=== PATIENT | female | born 1960 | race Caucasian/White ===

== ENCOUNTER 2022-07-22 14:19 | Outpatient (CLI) | payer OTHER, SELFPAY ==
[2022-07-22 15:00] LABS: Basophils # 0.1 10^3/uL (0.0-0.1); Basophils % 0.6 %; Eosinophils # 0.3 10^3/uL (0.0-0.8); Eosinophils % 4.3 %; Hematocrit 42.3 % (37.0-47.0); Hemoglobin 14.8 g/dL (11.5-15.3); Lymphocytes # 2.7 10^3/uL (0.8-4.8); Lymphocytes % 33.6 %; Mean Corpuscular Hemoglobin 31.8 pg (28.0-34.0); Mean Corpuscular Volume 90.8 fl (81-99); Mean Platelet Volume 10.9 fL (7.4-10.4); Monocytes # 0.7 10^3/uL (0.2-0.9); Monocytes % 8.8 %; Neutrophils # 4.12 10^3/uL (1.8-7.7); Neutrophils % 52.3 %; Nucleated Red Blood Cells % 0 %; Platelet Count 196 10^3/cmm (130-400); Red Blood Count 4.66 10^6/uL (4.1-5.3); Red Cell Distribution Width 11.9 % (12.1-15.1); White Blood Count 7.9 10^3/uL (4.0-10.0)
[2022-07-22 15:24] LABS: Anion Gap 14.8 (5-19); Blood Urea Nitrogen 10 mg/dL (8-23); Calcium 9.1 mg/dL (8.5-10.5); Carbon Dioxide 25 mmol/L (22-29); Chloride 102 mmol/L (98-107); Glomerular Filtration Rate 72.9 mL/min (90-130); Glucose 94 mg/dL (65-115); Osmolality Calculated 285 mOsm/kg (285-295); Potassium 3.8 mmol/L (3.5-5.1); Sodium 138 mmol/L (136-145)
[2022-07-22 15:40] LABS: INR 0.97 (0.83-1.21); Prothrombin Time (Patient) 13.2 Seconds (12.0-15.1)
== END 2022-07-22 14:20 | disposition home or self-care (01) ==
LOC: LAB 14:24
PROVIDERS: PCP Family Medicine; Visit Provider Internal Medicine Cardiovascular Disease
DX: I21.4 Non-ST elevation (NSTEMI) myocardial infarction (principal); Z79.899 Other long term (current) drug therapy
CPT/HCPCS: 80048; 85025; 85610; 86850; 86900

== ENCOUNTER 2022-07-23 05:32 | Outpatient (CLI) | payer OTHER, SELFPAY ==
[2022-07-23] VITALS (26 sets, daily range): BP systolic 114–193; BP diastolic 61–97; PULSE 49–70; RESP 9–18; TEMP 36.9–37; O2SAT 91–99; BMI 27.1
--- NOTE | 2022-07-23 06:00 | XACV_ITS ---
Ht: 165 cm Wt: 74 kg BSA: 1.86 m2 Gender: Female : 1960 Any Known Allergies: Other Exam Priority: Routine Procedure(s): Procedure Description: Diagnostic procedure Karl NICOLAS; Diagnostic Cath Status: Elective Diagnostic Findings * The left main is a medium caliber vessel which has a distal tapering narrowing of around 50%. * The left aneurysm the artery is a medium caliber vessel which appears to wrap around the LV apex minimally. Mild to moderate diffuse disease was noted in this vessel. The proximal to mid LAD was found to have a long stented segment which was found to have 20 to 30% diffuse in-stent narrowing. The first and second septal splunk consultant branches were found to have moderate to severe ostial narrowing. The first diagonal branch is a small caliber vessel which was found to have moderate to severe diffuse disease. Competitive flow was noted in the SHELTON graft attached to the distal artery. Just beyond the anastomosis, there was a 50 to 60% narrowing in the LAD proper. Around the apex, the artery was found to be of small caliber.. * The circumflex artery is a medium caliber vessel which was found to have moderate disease at the ostium. The first obtuse marginal artery was found to have venous graft with a Relative blood flow. The artery distal to the anastomosis was found to have mild diffuse disease. After the first obtuse marginal branch, the circumflex proper appears to be totally occluded. Expk-iy-[id number] collaterals were noted filling of the PDA and the PLV branches from the distal LAD and the first obtuse marginal branch. Grade 2 retrograde filling also was noted in the second obtuse marginal branch. * The right coronary artery was found to have long stented segment in the proximal portion. High-grade elongated in-stent stenosis was noted in this area. After the first RV branch, the artery appears to be totally occluded. * The venous graft to the obtuse marginal artery was selectively engaged. This venous graft was found to be widely patent. The retrograde flow into the circumflex and left anterior descending artery was noted, through this bypass graft.. * The venous graft to the right coronary artery, diagonal and the other obtuse marginal branch were found to be totally occluded. * The SHELTON to the LAD was found to be widely patent. Just before the distal anastomosis, the SHELTON was found to have around 50 to 60% narrowing. * An aortic root injection was performed to look for any patent grafts. The aorta was of normal caliber. No other grafts were visualized with the aortic root injection. Conclusions 1. 62-year-old white female with multiple risk factors for coronary artery disease, status post 5 vessel coronary bypass surgery, presenting with frequent arrhythmia. Patient refused to undergo a stress test because of the previous experience withthe stress test. So a cardiac catheterization was recommended to further evaluate the coronary status as well as the graft status.. 2. Patient underwent left heart catheterization with left and right coronary angiogram, graft angiogram and aortogram today. The findings are as follows. 3. 1. Tapering, 50% narrowing of the distal left main. 2. Moderate diffuse in-stent narrowing in the proximal to mid LAD. Moderate disease in the distal LAD just distal to the anastomosis of the SHELTON. 3. Total occlusion of the circumflex artery after giving of the first obtuse marginal branch. 3. Total occlusion of the right coronary artery after the first RV branch. High-grade in-stent stenosis in the proximal stented segment of the right coronary artery. Grade 2-3 iexp-up-aayjl collaterals, filling of the PLV and PDA branch of the right coronary artery4. Patent venous graft to the first obtuse marginal branch of the circumflex artery and SHELTON to the distal LAD. Occluded venous graft to the diagonal, second obtuse marginal and right coronary arteries.5. LVEDP of 16 mmHg.. Recommendations * Based on the above angiogram findings, it was thought to be appropriate to perform a Myocardial perfusion imaging to understand the ischemic burden and then consider revascularization. Diagnostic RX Recommendation: other cardiac therapy w/o CABG/PCI LV EDP: 16 mmHg Left Ventriculography Findings: * LV gram was not performed because of the concern of dye over load. The LVEDP of 16 mmHg. Pressures Phase:Rest AO : 145 / 72 ( 100 ) @ 7:18:00 AM 144 / 59 ( 94 ) @ 7:42:00 AM LV : 147 / -8 / 16 @ 7:41:00 AM 140 / -9 / 11 @ 7:42:00 AM Valves Phase:DefaultPhase AV : 0.0 @ 8:32:11 AM 0.0 @ 8:32:11 AM AV Mean Gradient: 0.0 @ 8:32:11 AM 0.0 @ 8:32:11 AM Clinical Evaluation EBL: 5mL-10mL Procedural Details Procedure Consent Obtained. Pre-Procedure Time Out. Identified patient by full name and date of as verbalized by the patient/guarantor. Does the consent match the physician's order: Yes. Accurate & Complete Informed Consent: Yes. Inpatient/Outpatient History & Physical on Chart: Yes. If H&P is completed, is and addenduem needed: No; If yes, is the addendum complete: N/A. Visualize and Verify Site with Patient/Guarantor: N/A. Relevant Radiology Images available: N/A. Pre-op teaching completed and patient verbalized understanding. The risks, benefits, and alternatives of sedation and/or procedure were discussed by physician. The patient agrees to continue. Procedure started. [facility] Clinical Fraility Score: 4: Vulnerable. 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 Chest Pain Symptom Assessment: Typical Angina Symptoms. Cardiovascular Instability: No. Correct patient, site and procedure confirmed by cath team. PERRLA. Strong, equal hand wood technologist bilaterally. Lungs clear x 5 lobes. IV Site on Arrival: 18 gauge in the right anticubital. IV Fluids: 0.9% NaCl at KVO. 0 mL infused prior to botany laboratory assistant. Pre Procedural Pulses: bilateral dorsalis pedis was 3+. Pre Procedural Pulses: bilateral posterior tibial was 3+. Pre Procedural Pulses: bilateral radial was 3+. Oxygen started at 2liters/min via nasal canula. bilateral groins was prepped with chloroprep then draped in the usual sterile fashion. Physician arrived. Equipment: 6F - Femoral. Cardiac Cath Pack. ACIST Manifold Kit Model BT 2000. Heparinized Saline (2 units/mL), 1000 mL bag. Kit, Micropuncture. Baseline sample Acquired. HR: 63 BPM. Physician scrubbed in. Immediate Pre-Procedure Time Out. Correct Patient: Yes; Correct Procedure: Yes; Correct Site: Yes; Correct Patient Position: Yes; Correct Supplies: Yes; Dried Flammable Prep: Yes; Blood Products Available: N/A;. Lidocaine 1% infiltrated to the right groin. Arterial access obtained with micropuncture set. A 5 slovenian JL4 catheter in over wire. Multiple views taken of left coronary artery. Catheter removed over the standard wire. A 5 slovenian JR4 catheter in over wire. Multiple views taken of right coronary artery. Catheter redirected to the grafts. SVG to RCA occluded. Catheter removed over the exchange wire. A 5 slovenian IM catheter in over wire. SHELTON to LAD visualized. Catheter removed over the exchange wire. A 5 slovenian LCB catheter in over wire. Catheter removed over the standard wire. A 5 slovenian Angled Pig catheter in over wire. EDP Sample taken: LV 147/-9,16; HR: 44 BPM; SpO2: 97%. Pullback taken: LV 140/-10,11; AO 144/59(94); Mean: 0mmHg, Peak to Peak: 0mmHg, SEP: 7sec/min; HR: 59 BPM; SpO2: 96%. Aortic Root Visualized. Aortic Root image 20 ml for total of 40 ml. Catheter removed over the standard wire. A 5 slovenian AR1 MOD catheter in over wire. Catheter removed over the standard wire. A 5 slovenian IM catheter in over wire. SVG's to OM/Circ visualized and patent. Catheter removed over the standard wire. A 5 slovenian JR4 catheter in over wire. Catheter removed over the standard wire. Physician scrubbed out. A Manual Compression was successful obtaining hemostatsis at the Right Femoral artery insertion site. Sheath(s) removed and manual pressure held until hemostasis was achieved. Sterile 4x4 and Op-site applied to the puncture site. No oozing or hematoma noted. Post sheath removal instructions were given and the patient verbalized understanding. Post Procedure: Pulses reassessed and unchanged. PERRLA. Strong, equal hand wood technologist bilaterally. No VTE prophylaxis required. Medication's Wasted: Lidocaine 1% = 4 mL. Medication's Wasted: Heparin = 2500 units. Total IV fluids: 70 mL. Contrast type used: Omnipaque 300 mgI/mL, 500 mL bottle. Complications: none. Post-op diagnosis: CAD. Estimated blood loss: 5mL-10mL. Responsiveness - Normal response to verbal stimuli; alert and oriented, PERRLA. Airway - Unaffected, no intervention required; spontaneous ventilation. Circulation: W/N/L, pulses unchanged. Nausea/Vomiting: No. Procedure completed. Patient transferred by stretcher to CPRU. Vital chart was stopped. Access Site Site: Right Femoral artery Sheath Size: 5 Fr Hemostasis Method: Manual Compression Hemostasis Success: Successful Procedure Medications Start: 7:10 AM Stop: 7:10 AM Medication: Versed Amount: 1 mg Route: I.V. Start: 7:10 AM Stop: 7:10 AM Medication: Fentanyl Amount: 50 mcg Route: I.V. Start: 7:14 AM Stop: 7:14 AM Medication: Versed Amount: 1 mg Route: I.V. Start: 7:14 AM Stop: 7:14 AM Medication: Fentanyl Amount: 50 mcg Route: I.V. Start: 7:17 AM Stop: 7:17 AM Medication: Heparin Amount: 1500 units Route: I.V. Start: 8:14 AM Stop: 8:14 AM Medication: Fentanyl Amount: 50 mcg Route: I.V. Start: 8:18 AM Stop: 8:18 AM Medication: Fentanyl Amount: 50 mcg Route: I.V. I, the attending physician, have reviewed and verified all procedure medications. Yes, all medications given per verbal order History/Risk Factors Hypertension: Yes Dyslipidemia: Yes Peripheral Arterial Disease (PAD): No Myocardial Infarction (FL): No Obesity: No Renal Disease: No Tobacco Use: Current/Recent(w/in 1 year) Prior Interventions PCI: Yes CABG: Yes Valve Surgery: No Report Signatures Finalized by Dr Selam Barajas MD [facility] on 07/24/2022 11:23 AM
[2022-07-23] MEDS: diphenhydrAMINE 50 mg Capsule PO (06:33)
--- NOTE | 2022-07-23 07:03 | W.PM.OPSUD ---
Surgery/Procedure H&P Update DATE OF PROCEDURE: July 23, 2022 DATE H&P PERFORMED: 07/08/22 H&P UPDATE INFORMATION: I have reviewed H&P completed within last 30 days, I have examined patient prior to procedure and No changes to prior documentation PREOP DIAGNOSIS: ASHD PRIMARY INDICATION FOR PROCEDURE: Patient is a 61-year-old coronary artery disease, status post coronary artery bypass surgery, presenting with a frequent ventricular arrhythmia. Patient refused stress test PLANNED PROCEDURE: Operation Date: 07/23/22 07:00 Proposed Procedures p [facility] 92931,I21.4, R94.31, I49.9(Left) - Selam Barajas MD PATIENT REASSESSED PRIOR TO SEDATION, WITH NO CHANGE NOTED: Yes PHYSICAL EXAM: alert, oriented x 3, clear to auscultation bilaterally and regular rate & rhythm AIRWAY EVAL/ANESTHESIA PLAN: normal airway, see other exam findings, ASA III, Monitored Anesthesia, Local Anesthesia, Risks, benefits & alternatives of sedation and/or procedure discussed and Patient agrees to continue as planned
--- NOTE | 2022-07-23 08:39 | SUR.PHASEI ---
POST CATH NOTE Received patient from freezer laboratory technician- status post cardiac catheterization via the right femoral approach. Sheath removed in freezer laboratory technician prior to arrival on unit. Groin access site is free of hematoma or s/s o active bleeding at this time. Pain- 0; assessed per flacc scale as patient is sedated at this time from procedure. See v/s and post cath flowsheet for details of assessment. Call light in reach if needed. Will continue to monitor.
--- NOTE | 2022-07-23 09:06 | SUR.PHASEI ---
POST OP IV FLUIDS Post cath iv fluid rate adjusted to 125 ml/hr per verbal orders from Dr Barajas. IVF IS 0.9% normal saline.
[2022-07-23] MEDS: isosorbide mononitrate ER 60 mg Tablet 120 MG PO (09:36)
[2022-07-23] MEDS: sertraline 100 mg Tablet PO (09:36)
[2022-07-23] MEDS: prenatal vitamin Capsule 1 CAP PO (09:36)
[2022-07-23] MEDS: alum-mag-hydroxide-sime 30 mL UDC PO (11:12)
[2022-07-23] MEDS: amlodipine 10 mg Tablet PO (11:12)
--- NOTE | 2022-07-23 11:13 | SUR.PHASEI ---
UPSET STOMACH 30 ML MAALOX GIVEN PO. WILL REASSESS.
--- NOTE | 2022-07-23 11:50 | SUR.PHASEI ---
upset stomach/BP NOTE Blood pressure 169/85 currently post amlodipine dosing. Upset stomach resolved after maalox admin. Will coninue to monitor.
[2022-07-23] MEDS: ezetimibe 10 mg Tablet PO (17:09)
[2022-07-23] MEDS: atorvastatin 40 mg Tablet 20 MG PO (21:02)
[2022-07-23] MEDS: sodium chloride 0.9% 1,000 ML 125 ML IV (21:04)
[2022-07-24] VITALS: BP 134/65; PULSE 64; RESP 21; TEMP 37.1; O2SAT 95
--- NOTE | 2022-07-24 | ECG_ITS ---
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 Interpretive Statements NAME OF STUDY: LEXISCAN SESTAMIBI STRESS TEST INDICATION: POST ANGIOGRAM/HX OF CABG PROCEDURE: At the baseline, the EKG revealed normal sinus rhythm with a frequent ventricular ectopics. The baseline heart was 81 bpm with a blood pressue of 128/77 mm of Hg Lexiscan was infused over a period of 20 seconds. A total of 0.4 milligrams of Lexiscan was infused. The stress phase was continued for a total of 5 minutes. Heart rate at the end of the stress phase was 104 bpm with a blood pressure 169/58 mm of Hg. The EKG at the peak infusion revealed no significant changes. Sestamibi was injected 20 seconds after the Lexiscan infusion. Heart rate at the end of the recovery phase was 89 bpm with a blood pressure of 142/94 mm of Hg. CONCLUSION: 1. No significant EKG changes with the LexiScan infusion 2. No LexiScan induced chest pain or cardiac arrhythmia 3. Normal blood pressure and heart rate response 4. Sestamibi/sestamibi perfusion scan pending; see separate report. Electronically Signed On 07-27-2022 0:10:04 CDT by Selam Barajas M.D. [email or web address]
--- NOTE | 2022-07-24 | NMCV_ITS ---
[address] [address] Nuclear Medicine Report Cancelled Patient: Macey Richter Unit #: [id number] : 1960 Age/Sex: 62 / F ADM Date: 07/23/22 Loc: [facility] Room/Bed: Attending Dr: Selam Barajas MD Ordering Provider/Ordering MD: Date of Service: Procedure(s): Accession Number(s): Report Number: [id number] NM danial perf SPECT r/s* [id number] Macey Richter Age: 62 Gender: F : 1960 Exam Date: 07/24/2022 10:00 Ordering Phys: Selam Barajas MD ([email or web address]) Technologist: SUZANNE Kearns Exam Location: [facility] Indications: CHEST PAIN STRESS TEST Please see separate stress test report in [facility] for full findings IMAGE PROTOCOL Rest/Stress 1 Lexiscan Day Radiopharmaceutical Dose (mCi) Administration Site Administered by Rest: Tc-99m 10.9 IV Toy Ortega, REALTY LOAN SPECIALIST Sestamibi Stress:Tc-99m 32.6 IV SUZANNE Kearns Sestamibi Rest: 24-Jul-2022 60 Discovery 630 Stress: 24-Jul-2022 30 Discovery 630 0.4mg Lexiscan. Images obtained in supine and prone position. SPECT RESULTS Technical Quality: Excellent Raw Data Analysis: Normal Image Corrections: No attenuation or motion correction applied Summed Stress Score: 6 Summed Rest Score: 7 Summed Difference Score: 2 PERFUSION FINDINGS Moderate area of minimal to moderately decreased tracer uptake was noted in the basal and mid inferior and inferolateral regions. Significant reversibility was noted in the inferior region at rest FUNCTIONAL RESULTS (calculated via Gated SPECT) Stress Image LV EF (%): 66 Stress EDV (mL):86 TID: 1.37 Stress ESV (mL):29 FUNCTIONAL FINDINGS: Segmental wall motion analysis revealing no gross wall motion abnormalities IMPRESSIONS 1. Myocardial perfusion imaging revealing moderate area of decreased tracer uptake in the inferior and inferolateral region with significant reversibility in the inferior region suggesting myocardial scarring with ischemia in the distribution of the left circumflex/right coronary artery. 2. Normal LV ejection fraction of 66%. 3. LV wall motion analysis revealing no gross wall motion abnormalities. 4. Normal LV volume No similar previous studies are available for comparison Dr Selam Barajas MD [facility] (Electronically Signed) Final Date: 24 July 2022 18:19 S MTDD
[2022-07-24] MEDS: sodium chloride 0.9% 1,000 ML 125 ML IV (03:48)
[2022-07-24 04:02] VITALS: BP 127/84; PULSE 66; RESP 22; TEMP 36.7; O2SAT 95
[2022-07-24 05:19] VITALS: PULSE 58
[2022-07-24] MEDS: zinc gluconate 50 mg Tablet PO (08:59)
[2022-07-24] MEDS: prenatal vitamin Capsule 1 CAP PO (08:59)
[2022-07-24] MEDS: pantoprazole DR 40 mg Tablet PO (08:59)
[2022-07-24] MEDS: aspirin 81 mg EC Tablet PO (08:59)
[2022-07-24] MEDS: sertraline 100 mg Tablet PO (08:59)
[2022-07-24] MEDS: isosorbide mononitrate ER 60 mg Tablet 120 MG PO (09:00)
--- NOTE | 2022-07-24 10:00 | NMCV_ITS ---
NM danial perf SPECT r/s* [id number] Macey Richter Age: 62 Gender: F : 1960 Exam Date: 07/24/2022 10:00 Ordering Phys: Selam Barajas MD ([email or web address]) Technologist: SUZANNE Kearns Exam Location: [facility] Indications: CHEST PAIN STRESS TEST [facility] IMAGE PROTOCOL Rest/Stress 1 Lexiscan Day Radiopharmaceutical Dose (mCi) Administration Site Administered by Rest: Tc-99m 10.9 IV SUZANNE Mon Sestamibi Stress:Tc-99m 32.6 IV SUZANNE Kearns Sestamibi Rest: 24-Jul-2022 60 Discovery 630 Stress: 24-Jul-2022 30 Discovery 630 0.4mg Lexiscan. Images obtained in supine and prone position. SPECT RESULTS Technical Quality: Excellent Raw Data Analysis: Normal Image Corrections: No attenuation or motion correction applied Summed Stress Score: 6 Summed Rest Score: 7 Summed Difference Score: 2 PERFUSION FINDINGS Moderate area of minimal to moderately decreased tracer uptake was noted in the basal and mid inferior and inferolateral regions. Significant reversibility was noted in the inferior region at rest FUNCTIONAL RESULTS (calculated via Gated SPECT) Stress Image LV EF (%): 66 Stress EDV (mL):86 TID: 1.37 Stress ESV (mL):29 FUNCTIONAL FINDINGS: Segmental wall motion analysis revealing no gross wall motion abnormalities IMPRESSIONS 1. Myocardial perfusion imaging revealing moderate area of decreased tracer uptake in the inferior and inferolateral region with significant reversibility in the inferior region suggesting myocardial scarring with ischemia in the distribution of the left circumflex/right coronary artery. 2. Normal LV ejection fraction of 66%. 3. LV wall motion analysis revealing no gross wall motion abnormalities. 4. Normal LV volume No similar previous studies are available for comparison Dr Selam Barajas MD [facility] (Electronically Signed) Final Date: 24 July 2022 18:19 S
[2022-07-24 10:08] VITALS: BP 177/72; PULSE 71; RESP 16; TEMP 37.1; O2SAT 95
[2022-07-24] MEDS: aminophylline 25 mg/mL SDV 10 mL IVP (10:49)
[2022-07-24] MEDS: ondansetron 2 mg/ML SDV 2 mL 4 MG IVP (11:01)
[2022-07-24] MEDS: regadenoson 0.4 Mg/5 ml Syringe IVP (11:01)
[2022-07-24 11:02] VITALS: BP 147/92; PULSE 87
--- NOTE | 2022-07-24 14:21 | P.PN_ITS ---
Subjective Subjective: Patient underwent a cardiac catheterization yesterday. She was found to have total occlusion of the circumflex artery after the first obtuse marginal branch. The right coronary artery was found to be totally occluded after the RV branch. The venous graft to the RCA was completely occluded. The venous graft to the obtuse marginal 1 was patent. The venous graft to the second obtuse marginal artery and to the diagonal artery were completely occluded. The SHELTON to the LAD was found to be patent. Based on the angiogram findings, it was thought to be appropriate to do a Myocardial perfusion imaging to evaluate the ischemic burden. Patient underwent a Myocardial perfusion imaging today. She was found to have fixed defect in the distribution of the circumflex artery and the right coronary artery with some reversible defect in the distribution of the right coronary artery Vitals/I&O/Wt Last Vital Signs Temp 98.7 F 07/24/22 10:08 Pulse 87 07/24/22 11:02 Resp 16 07/24/22 10:08 BP 147/92 07/24/22 11:02 Pulse Ox 95 07/24/22 10:08 O2 Del Method 07/24/22 10:08 07/23/22 07/24/22 07/24/22 22:59 06:59 14:59 Intake Total 1200 / 1680 841.667 / 2521.667 Output Total 0 / 0 Balance 1200 / 1680 841.667 / 2521.667 Weight last 48 hrs Weight 163 lb Physical Exam Narrative: GENERAL: The patient is alert and oriented times three. Not in any acute distress. HEENT: No significant pallor, icterus or lymphadenopathy.Oral cavity: There are no mucous membrane lesions. NECK: Trachea appears to be central. No masses noted. No JVD or thyromegaly appreciated. RESPIRATORY: Chest is symmetrical. No intercostals muscle retraction or any accessory muscle activation. There is no chest wall tenderness. Breath sounds are heard bilaterally. No rales or rhonchi heard. No evidence of any consolidation. BREASTS: Deferred. HEART: The heart sounds are normal. No S3 or S4. No significant murmurs. No pericardial rub ABDOMEN: No vessel pulsations or distention. No tenderness. No organomegaly appreciated. Bowel sounds are normally heard. : Deferred. RECTAL: Deferred. LYMPHATIC: No lymphadenopathy noted in the neck. EXTREMITIES: No hematoma bleeding in the right groin MUSCULOSKELETAL: No acute joint deformities or swelling SKIN: There are no significant rashes or ecchymosis NEUROPSYCHIATRIC: The patient is alert and oriented x3. Appears to be in a good mood. No tremors or rigidity noted. A&P Assessment and plan (1) Ventricular arrhythmia: Continue on the current measures (2) Atherosclerosis of coronary artery of [place] heart without angina pectoris: It was decided to start the patient on amlodipine 5 mg p.o. daily in addition to current medication for better control of the blood pressure as well as for coronary ischemia. (3) Benign essential HTN: As mentioned above (4) Dyslipidemia: Continue on the current medications Plan Other problems are as outlined before Attestations Medical Necessity Statement*: Discharge home today Coding Level of Care Code 04406 Diagnoses Ventricular arrhythmia I49.9 Atherosclerosis of coronary artery of [place] heart without angina pectoris I25.10 Benign essential HTN I10 Dyslipidemia E78.5
== END 2022-07-24 13:55 | disposition home or self-care (01) ==
LOC: CCL 05:36 → CSU 15:12
PROVIDERS: PCP Family Medicine; Visit Provider Internal Medicine Cardiovascular Disease
DX: I49.9 Cardiac arrhythmia, unspecified (principal); I25.10 Atherosclerotic heart disease of native coronary artery without angina pectoris; I10 Essential (primary) hypertension; E78.5 Hyperlipidemia, unspecified; Z95.1 Presence of aortocoronary bypass graft; F17.200 Nicotine dependence, unspecified, uncomplicated
CPT/HCPCS: 36415; 78452; 93017; 93459; 96361; 96365; 96374; 96375; 99152; 99153; A9500; C1769; C1887; C1894; J0280; J1644; J2250; J2405; J2785; J3010; J7030; Q0163; Q9967

== ENCOUNTER 2022-08-03 07:54 | Outpatient (CLI) | payer OTHER, SELFPAY ==
--- NOTE | 2022-08-03 08:00 | USCV_ITS ---
Macey Richter Age: 62 Gender: F : 1960 Exam Date: 08/03/2022 08:14 Ordering Phys: Selam Barajas MD ([email or web address]) Technologist: [place]am Location[place] [facility] [place] Indication: sob abnormal ekg BP: 110 / 70 HR: 64 Rhythm: Sinus Technical Quality: Adequate MEASUREMENTS (Male / Female) Normal Values 2D ECHO LV Diastolic Diameter PLAX 5.0 cm 4.2 - 5.9 / 3.9 - 5.3 cm LV Systolic Diameter PLAX 3.0 cm IVS Diastolic Thickness 1.1 cm 0.6 - 1.0 / 0.6 - 0.9 cm IVS Systolic Thickness 1.7 cm LVPW Diastolic Thickness 1.1 cm 0.6 - 1.0 / 0.6 - 0.9 cm LVPW Systolic Thickness 1.3 cm LVOT Diameter 2.0 cm LV Ejection Fraction 2D Teich 70.0 % LV Ejection Fraction MOD 2C 62.2 % LV Ejection Fraction 2C AL 62.6 % LA Diameter 4.2 cm IVC Diameter 1.9 cm M-MODE Aortic Annulus Diameter 3.2 cm LA Ao Ratio MM 1.4 MV E Point Septal Separation 0.4 cm DOPPLER AV Peak Velocity 152.0 cm/s LVOT Peak Velocity 109.0 cm/s AV Area Cont Eq vti 2.5 cm squared AV Area Cont Eq pk 2.3 cm squared MV Area PHT 5.0 cm squared Mitral E to A Ratio 1.0 MV E' Velocity 44.5 cm/s Mitral E to MV E' Ratio 8.8 Mitral E to LV E' Lateral Ratio 7.7 Mitral E to LV E' Septal Ratio 10.3 TR Peak Velocity 113.0 cm/s TR Peak Gradient 5.1 mmHg TV Peak E Velocity 92.0 cm/s Right Atrial Pressure 3.0 mmHg Pulmonary Artery Systolic Pressu 8.1 mmHg RV Acceleration Time 0.2 s FINDINGS Left Ventricle Normal LV size and ejection fraction of 62%. Somewhat dyskinetic basal inferior wall segment.mild left ventricular hypertrophy. Right Ventricle The right ventricle is normal in size and function. Right Atrium The right atrium is normal in size. Left Atrium The left atrium is normal in size. Mitral Valve No gross abnormalities noted Aortic Valve Thickened aortic valve. Tricuspid Valve No gross abnormalities noted Pulmonic Valve Pulmonic valve not well visualized. Pericardium Normal pericardium without effusion. Aorta Normal ascending aorta dimension. IVC Normal inferior vena cava. CONCLUSIONS Normal LV size and ejection fraction of 62%. Somewhat dyskinetic basal inferior wall segment. Mild left ventricular hypertroph. Thickened aortic valve. No significant stenotic or regurgitant lesions There is no pericardial effusion. Technically difficult study because of the poor ultrasonic window. Dr Selam Barajas MD [facility] (Electronically Signed) Final Date: 03 August 2022 10:05 S
== END 2022-08-03 07:55 | disposition home or self-care (01) ==
PROVIDERS: PCP Family Medicine; Visit Provider Internal Medicine Cardiovascular Disease
DX: I21.4 Non-ST elevation (NSTEMI) myocardial infarction (principal); R06.09 Other forms of dyspnea; I35.8 Other nonrheumatic aortic valve disorders
CPT/HCPCS: 93306; 99205

== ENCOUNTER → 2022-08-10 11:22 | Outpatient (BNVA) | payer OTHER, SELFPAY | PROVIDERS: PCP Family Medicine; Visit Provider Specialist | DX: I25.10 Atherosclerotic heart disease of native coronary artery without angina pectoris (principal); Z95.1 Presence of aortocoronary bypass graft; E78.5 Hyperlipidemia, unspecified; I10 Essential (primary) hypertension; F17.210 Nicotine dependence, cigarettes, uncomplicated; Z79.82 Long term (current) use of aspirin | CPT/HCPCS: 99214 ==

== ENCOUNTER → 2022-09-23 13:36 | Outpatient (BNVA) | payer OTHER, SELFPAY | PROVIDERS: PCP Family Medicine; Visit Provider Internal Medicine Cardiovascular Disease | DX: R06.02 Shortness of breath (principal); I25.10 Atherosclerotic heart disease of native coronary artery without angina pectoris; E78.5 Hyperlipidemia, unspecified; I49.8 Other specified cardiac arrhythmias; Z79.01 Long term (current) use of anticoagulants; R07.9 Chest pain, unspecified; F17.210 Nicotine dependence, cigarettes, uncomplicated; I12.9 Hypertensive chronic kidney disease with stage 1 through stage 4 chronic kidney disease, or unspecified chronic kidney disease; N18.9 Chronic kidney disease, unspecified | CPT/HCPCS: 36415; 80048; 83880; 84443; 85025; 93005; 99214 ==